=== PATIENT | male | born 1945 | race Caucasian/White ===

== ENCOUNTER 2024-11-18 11:31 | Day surgery (SDC) | payer MEDICARE, BC ==
[2024-11-18] MEDS: Lactated Ringers 1,000 ML IV SCH (11:51)
[2024-11-18] MEDS ORDERED: Phenylephrine 1% 10 MG/ML SDV ONE (12:15)
[2024-11-18] MEDS ORDERED: Propofol 200 MG/20 ML SDV ONE ×2 (12:15)
[2024-11-18] MEDS ORDERED: ePHEDrine 50 MG/ML SDV ONE (12:15)
[2024-11-18] MEDS ORDERED: Midazolam 1 MG/ML 2 ML SDV ONE (12:15)
[2024-11-18] MEDS ORDERED: Ketamine 200 MG/20 ML MDV ONE (12:15)
[2024-11-18] MEDS ORDERED: fentaNYL 50 MCG/ML SDV ONE (12:15)
[2024-11-18 13:39] VITALS: BP 143/69; PULSE 61
== END 2024-11-18 13:52 | disposition home or self-care (01) ==
LOC: CC.SDS 11:31
PROVIDERS: ATTEND Family Medicine
DX: Z12.11 Encounter for screening for malignant neoplasm of colon (principal); D12.3 Benign neoplasm of transverse colon; D12.4 Benign neoplasm of descending colon; D12.5 Benign neoplasm of sigmoid colon; K57.30 Diverticulosis of large intestine without perforation or abscess without bleeding; I10 Essential (primary) hypertension; E78.00 Pure hypercholesterolemia, unspecified; N40.1 Benign prostatic hyperplasia with lower urinary tract symptoms; R35.1 Nocturia; N52.9 Male erectile dysfunction, unspecified; Z79.899 Other long term (current) drug therapy
CPT/HCPCS: 00811; 45331; 45380; 45385; 88305; 99100; J2250; J2371; J2704; J3010; J3490; J7120